=== PATIENT | female | born 1990 | race Caucasian/White ===

== ENCOUNTER 2025-05-09 11:11 | Emergency (ER) | payer BC ==
[~2025-05-09] VITALS: Ht 162.6 cm; Wt 82.7 kg
[2025-05-09 11:14] VITALS: BP 138/59; PULSE 89; RESP 18; TEMP 97.7; O2SAT 100
--- NOTE | 2025-05-09 11:32 | Physician Documentation ---
History of Present Illness ~ Chief Complaint: Leg Pain Stated Complaint: L CALF PAIN Time Seen by MD: 11:16 Source: patient Mode of Arrival: POV Exam Limitations: no limitations HPI 34-year-old female who is here with left calf pain that occurred just prior to arrival when she was doing a kick boxing class. She states that she felt a pop in her calf in his concerned that she may have torn her calf muscle. No prior tears. Patient has not noticed any ecchymosis or swelling of her calf muscle. She took 800 mg of ibuprofen which she states has helped with the pain. Medication Reconciliation Allergies: Coded Allergies: No Known Allergies (Unverified , 05/09/25) Past Medical History Past Medical History: No Pertinent History Review of Systems All Other Systems at this time: Reviewed and Negative Physical Exam Vital Signs: Temperature: 97.7, Heart Rate: 89, Respiratory Rate: 18, BP: 138/59, Pulse Oximetry: 100, Weight: 82.700 Oxygen Flow Rate: 0 Physical Exam General Appearance: Alert, WD/WN. NAD. HEENT: NCAT, PERRL, EOMI. Neck: Supple, trachea midline. Cardiovascular: RRR. No m/r/g. PV: pedal pulses 2+ bilaterally no LE edema Lungs: CTAB. Breathing unlabored Extremities: Left leg no ecchymosis, edema, no step-off at the Achilles tendon or indentation at the gastrocnemius muscle. No tenderness over the Achilles there is some mild tenderness at the distal aspect of the gastrocnemius muscle mostly on the medial distal side. No tenderness at the proximal aspect of the gastrocnemius muscle or popliteal area. It normal inspection of left knee no effusion or edema. Active range motion of ankle and left knee normal. Negative Sebastian's test. Skin: Warm/dry, normal color Neurological: Alert and oriented x4, ambulating with crutches Psychiatric: Affect congruent with mood. Procedures Splinting Location: left leg Pre-Made Type: walking boot Pre-Proc Neuro Vasc Exam: normal Post-Proc Neuro Vasc Exam: normal Splint Placed By: general maintenance mechanic Tolerated Procedure Well?: yes, no complications Progress Results/Orders Results/Orders Orders - JOSEPH MCDANIELS General Nursing Order (05/09/25 11:25) Ortho Orders (05/09/25 11:37) Vital Signs 05/09/25 11:14 Temp 97.7 Pulse 89 Resp 18 B/P (MAP) 138/59 Pulse Ox 100 O2 Flow Rate 0 Medical Decision Making Additional information obtaine: N/A Findings n/a General Diff Dx:Considerations: Include: Abrasion, Contusion, Fracture, Hematoma, Laceration, Malunion, Neurovascular injury, Open fracture, Sprain, Ulcer, Other Knee Diff Dx:Considerations: Unlikely: Other Ankle Diff Dx:Considerations: Unlikely: Other Foot Diff Dx:Considerations: Unlikely: Other Toe Diff Dx:Considerations: Unlikely: Other Additional Comment Patient has no evidence for an Achilles tendon rupture as there was no step-off at the Achilles no tenderness over the Achilles tendon and negative Sebastian test. Patient does not have any visible ecchymosis or edema over the gastrocnemius muscle or deformities making me have a low suspicion for a complete tear. Departure Time of Disposition: 11:30 Disposition: 01 HOME / SELF CARE / HOMELESS Impression: Primary Impression: Gastrocnemius strain, left Qualified Codes: S86.112A - Strain of other muscle(s) and tendon(s) of posterior muscle group at lower leg level, left leg, initial encounter Discharge Instructions: RICE Therapy for Routine Care of Injuries, [id number] Additional Instructions: Ice area, elevate, gradually advance activity as tolerated I have a low suspicion for a complete tear due to the lack of muscle deformity/indention, bruising. You still need to follow up with your primary care provider within the next 2weeks about order for physical therapy and possible outpatient imaging if this is not improving. Departure Forms: Excuse form Work or School Excused From: Physical Activity May Return but still avoid physical Activity from now until: May 16, 2025 Referrals: NO PRIMARY CARE PROVIDER (PCP) Prescriptions Ibuprofen (Ibuprofen) 800 Mg Tablet 1 TAB PO Q8H for pain for 10 Days, #30 TAB 0 Refills Prov: JOSEPH MCDANIELS 05/09/25 Education Educated: Patient Educated regarding: diagnosis, treatment, need for follow up Signature Scribe Signature: x Attestation: JOSEPH Balderas May 09, 2025 11:32
[2025-05-09] MEDS ORDERED: IBUP-1986 PO (11:55)
== END 2025-05-09 11:43 | disposition home or self-care (01) ==
LOC: ER 11:12
DX: S86.119A Strain of other muscle(s) and tendon(s) of posterior muscle group at lower leg level, unspecified leg, initial encounter (principal); X58.XXXA Exposure to other specified factors, initial encounter; Y93.89 Activity, other specified; Y92.89 Other specified places as the place of occurrence of the external cause; Y99.8 Other external cause status
CPT/HCPCS: 99283; L4360